=== PATIENT | female | born 1950 | race Caucasian/White ===

== ENCOUNTER 2018-07-31 19:16 | Emergency (ER) | payer MEDICARE ==
[2018-07-31 19:29] VITALS: BP 0/0
--- NOTE | 2018-07-31 19:31 | ED ---
Cardiac Resuscitation - HPI Summary HPI Summary: Pt is a 68 y/o female BIBA who presents to the ED c/o cardiac arrest. ABC alert called at 19:07, ETA 8 minutes. Last time pt was seen normal by family was at 17 :00, and CPR was initiated immediately upon EMS arrival at 18:48. Pt arrived at 19:15 with continuous CPR, nearly 30 minutes after CPR was started, with poor CPR and pause in CPR while moving the pt to the ER. Pt was given epinephrine by EMS, and was asystole on the monitor. At bedside, cardiac US showed cardiac standstill. Pt was here with her sister, who states the pt has DM and has been ill for a while. Time of 19:19. She is a level 5 caveat due to her lack of consciousness. - History of Current Complaint Stated Complaint: CARDIAC ARREST Time Seen by Provider: 07/31/18 19:16 Hx Obtained From: Family/Workforce Development Vice President - Sister, EMS Hx From Patient Unobtainable Due To: Other - Not conscious Arrest Witnessed: No Was AED Placed on Patient: Yes - Past Medical History Past Medical History: Unobtainable Due to Extremis, Other: - DM - Family History Family History: Unobtainable Due to Extremis - Social History Social History: Unobtainable Due to Extremis - Review of Systems Review of Systems: Unobtainable Due to Extremis - No respirations or cardiac activity Physical Examination - Summary Physical Exam Summary: Appearance: Ill appearing, I-gel in place Skin: cold, pale, partially placed IO needle Head/face: normal Eyes: prosthetic left eye, severe cataracts ENT: orally intubated Neck: supple, non-tender Respiratory: bilateral breath sounds when ventilated Cardiovascular: no spontaneous cardiac activity, at bedside cardiac US showed cardiac standstill Abdomen: mild gastric distention Bowel Sounds: present Musculoskeletal: no spontaneous movement, no tone Neuro: no spontaneous respirations, no spontaneous movements GCS: 3 - Physical Examination Resuscitation: Unsuccessful Cardiac Resus. Course/Dx - Course Course Of Treatment: Patient presents after 30 minutes of asystole after an on known down time. 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 On presentation she had poor quality CPR in progress which was caused as the entered the room. On moving to the stretcher a bedside ultrasound was performed and cardiac standstill was confirmed. The patient had developed a rigor and was completely pale and cold. Patient was pronounced at 1919 hrs. Sister and mother were present. Mother had stated that she believed her daughter to be DNR however could not find paperwork prior to EMS arrival. She noted her daughter to be diabetic and have issues related to her prematurity but no major cardiac issues. She states that she vomited and sat in a chair when she found her to be cold sometime later. Resource Recovery Specialist's office was notified and have released the body to the home. certificate was signed. - Diagnoses Provider Diagnoses: Cardiopulmonary arrest - Provider Notifications Discussed Care Of Patient With: Selene Rosenthal Time Discussed With Above Provider: 20:54 Instructed by Provider To: Other - Spoke to manager drug safety's office - will release body. Discharge - Sign-Out/Discharge Documenting (check all that apply): Patient Departure - - Discharge Plan Condition: Disposition: Referrals: Bailee Kingsley MD [Primary Care Provider] - - Billing Disposition and Condition Condition: Disposition: - Attestation Statements Document Initiated by Scribe: Yes Documenting Scribe: Citlalli Waters Provider For Whom Scribe is Documenting (Include Credential): Jimy Nixon MD Scribe Attestation: Citlalli Hoang, scribed for Jimy Nixon MD on 08/01/18 at 0003. Scribe Documentation Reviewed: Yes Provider Attestation: The documentation as recorded by the scribeCitlalli accurately reflects the service I personally performed and the decisions made by me, Jimy Nixon MD
== END 2018-07-31 19:19 | disposition expired ==
LOC: ED 19:16
DX: I46.9 Cardiac arrest, cause unspecified (principal)
CPT/HCPCS: 99284